=== PATIENT | male | born 1955 | race Caucasian/White ===

== ENCOUNTER 2016-08-03 20:34 | Inpatient (IN) | payer BC ==
[2016-08-03 21:14] LABS: Hematocrit 46 % (42-52); Hemoglobin 15.6 g/dl (14.0-18.0); Mean Corpuscular HGB Conc 34 g/dl (31-36); Mean Corpuscular Hemoglobin 30 pg (27-31); Mean Corpuscular Volume 88 fL (80-94); Mean Platelet Volume 7 um3 (7.4-10.4); Red Blood Count 5.28 10^6/ul (4.0-5.4); Red Cell Distribution Width 14 % (10.5-15); White Blood Count 8.2 10^3/ul (3.5-10.8)
[2016-08-03 21:29] LABS: ALT 29 U/L (7-52); AST 18 U/L (13-39); Albumin 4.9 g/dL (3.2-5.2); Alkaline Phosphatase 69 U/L (34-104); Anion Gap 5 mmol/L (2-11); BUN/Creatinine Ratio 14.9 (8-20); Blood Urea Nitrogen 18 mg/dL (6-24); CO2 Carbon Dioxide 32 mmol/L (22-32); Calcium 10.1 mg/dL (8.6-10.3); Chloride 103 mmol/L (101-111); EGFR African American 77.9 (>60); EGFR Non-African American 60.6 (>60); Globulin 2.7 g/dL (2-4); Glucose 114 mg/dL (70-100); Potassium 3.9 mmol/L (3.5-5.0); Sodium 140 mmol/L (133-145); Total Protein 7.6 g/dL (6.4-8.9)
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
--- NOTE | 2016-08-03 22:03 | RAD ---
INDICATION: Hypertension. MHE. COMPARISON: None. TECHNIQUE: Dual energy PA and routine lateral views of the chest were obtained. REPORT: Clear lungs and pleural spaces. Negative for pneumothorax. The heart, pulmonary vasculature, and mediastinal contours are unremarkable. Unremarkable osseous structures and soft tissue contours. IMPRESSION: No evidence for acute intrathoracic disease.
[2016-08-03 22:05] LABS: Acetaminophen < 15 mcg/mL; Alcohol < 10 mg/dL (<10); Salicylate < 2.50 mg/dL (<30)
[2016-08-03 22:05] LABS: Urine Bacteria Absent (Absent); Urine Bilirubin Negative (Negative); Urine Glucose Negative (Negative); Urine Nitrite Negative (Negative)
[2016-08-03 22:15] LABS: TSH (Thyroid Stimulating Horm) 1.47 mcIU/mL (0.34-5.60)
[2016-08-03 22:25] LABS: Benzodiazepine Urine Screen None Detected (None Detect)
[2016-08-04] MEDS ORDERED: Cetirizine* 10 MG TAB PO PRN (02:40)
[2016-08-04] MEDS: Zolpidem TAB* 10 MG PO SCH ×2 (03:05→17:00)
[2016-08-04] MEDS: Lisinopril TAB* 10 MG PO SCH ×2 (03:05→17:00)
[2016-08-04] MEDS: Citalopram TAB* 10 MG PO SCH (09:02)
[2016-08-04] MEDS: oxyCODONE/Acetamin 5/325 MG* TAB PO SCH ×4 (09:02→20:22)
[2016-08-04] MEDS: amLODIPine TAB* 5 MG PO SCH (09:03)
[2016-08-04] MEDS: Vitamin THERAPEUTIC TAB PO SCH (09:03)
[2016-08-04] MEDS: Atorvastatin* 20 MG TAB PO SCH (09:03)
[2016-08-04] MEDS: Potassium Chlor TAB* 20 MEQ TAB.ER PO SCH ×2 (09:03→20:21)
[2016-08-04] MEDS: Diltiazem CD CAP* 240 MG PO SCH (09:03)
[2016-08-04] MEDS: aMILoride TAB* 5 MG PO SCH ×3 (09:03→20:22)
[2016-08-04] MEDS: hydrALAZINE TAB* 10 MG PO SCH ×3 (09:03→20:22)
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
[2016-08-04] MEDS ORDERED: risperiDONE TAB* 1 MG PO SCH (21:00)
[2016-08-05] MEDS: Acetaminophen TAB* 325 MG PO PRN ×3 (01:10→15:29)
[2016-08-05] MEDS: amLODIPine TAB* 5 MG PO SCH (07:50)
[2016-08-05] MEDS: aMILoride TAB* 5 MG PO SCH ×3 (07:50→20:37)
[2016-08-05] MEDS: Citalopram TAB* 10 MG PO SCH (07:51)
[2016-08-05] MEDS: Diltiazem CD CAP* 240 MG PO SCH (07:51)
[2016-08-05] MEDS: Atorvastatin* 20 MG TAB PO SCH (07:51)
[2016-08-05] MEDS: hydrALAZINE TAB* 10 MG PO SCH ×3 (07:52→20:38)
[2016-08-05] MEDS: Vitamin THERAPEUTIC TAB PO SCH (07:52)
[2016-08-05] MEDS: oxyCODONE/Acetamin 5/325 MG* TAB PO SCH ×4 (07:52→20:38)
[2016-08-05] MEDS: Potassium Chlor TAB* 20 MEQ TAB.ER PO SCH ×2 (07:52→20:39)
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
[2016-08-05] MEDS ORDERED: ALPRAZolam TAB* 0.5 MG PO PRN (12:56)
[2016-08-05] MEDS: Lisinopril TAB* 10 MG PO SCH (18:01)
--- NOTE | 2016-08-05 20:09 | CONS ---
CONSULTATION NOTE: DATE OF CONSULT/DICTATION: 08/05/16 PRIMARY CARE PROVIDER: Lizeth Arenas MD. PRIMARY STATE APPELLATE CLERK: Dr. Robert. REQUESTING PROVIDER: Dr. Gamboa. CONSULTING PROVIDER: GURMEET Grayson. SUPERVISING PHYSICIAN: Danish Pierre MD. CHIEF COMPLAINT: Hypertension management. HISTORY OF PRESENT ILLNESS: This is a 61-year-old gentleman with a history of hypertension and chronic pain as well as obstructive sleep apnea, hyperlipidemia , chronic kidney disease, BPH, chronic tinnitus who is a current patient in the behavioral health unit. The hospitalist group was asked to consult for hypertension management. Of note, during the patient's hospital stay, his maximum blood pressure has been 191/95 mmHg, seems to be averaging somewhere around systolic pressures in the 160s. The most recent blood pressure was measured at 150/87 mmHg, pulse has been between 70 and 80 beats per minute. The patient reports that this is a longstanding medical issue and is under the care of Dr. Robert for blood pressure management. He is currently on 5 antihypertensives, which have been continued during his hospital stay. He monitors his blood pressure frequently at home and blood pressure readings tend to be between the 150 and 160 mmHg systolic. The patient states that there have been some recent changes to his antihypertensive regimen but he is unsure of what those changes are. The patient denies any chest pain but he did have an acute episode this morning where he stated that he felt as if he was "going to ." He is not currently symptomatic, denying chest pain, shortness of breath, or palpitations. The patient denies any cardiac history. He quit smoking in 1997 and has no known chronic lung disease. PAST MEDICAL HISTORY: 1. Hypertension. 2. Chronic back pain. 3. BPH. 4. Obstructive sleep apnea. HOME MEDICATIONS: 1. Lisinopril 40 mg p.o. daily. 2. Potassium chloride 20 mEq p.o. twice daily. 3. Amlodipine 5 mg p.o. daily. 4. Atorvastatin 20 mg p.o. daily. 5. Desloratadine 5 mg p.o. daily. 6. Diltiazem 240 mg p.o. daily. 7. Lexapro 15 mg p.o. daily. 8. Eszopiclone 3 mg p.o. at bedtime. 9. Hydralazine 10 mg p.o. t.i.d. 10. Amiloride 5 mg p.o. t.i.d. HOSPITAL MEDICATIONS: Reviewed and all home antihypertensive medications have been continued. SOCIAL HISTORY: The patient lives at home with his . He does have a smoking history but quit in 1997. REVIEW OF SYSTEMS: As noted above in HPI and is otherwise negative. PHYSICAL EXAM: GENERAL: This is a well-appearing middle-aged gentleman in no acute distress. Of note, the patient was extremely inappropriate during the exam process. VITAL SIGNS: Most recent vitals; temperature 98.5 degrees Fahrenheit, pulse 85 beats per minute, respiratory rate 16 per minute, oxygen saturation 97% on room air, and blood pressure 150/87 mmHg. HEENT: Head is normocephalic and atraumatic. RESPIRATORY: Lungs are clear to auscultation without wheezes, crackles, or rhonchi. CARDIOVASCULAR: Heart has a regular rate and rhythm without murmurs, rubs, or gallops. ABDOMEN: Soft and nontender to palpation. EXTREMITIES: There is no significant lower extremity edema. SKIN: Examination shows no concerning rashes or lesions. PSYCH: The patient is alert and appropriately oriented. Makes inappropriate gestures during the exam process. LABORATORY EVALUATION: Reviewed the labs from the time of admission, 08/03/16, at which point, CBC was within normal limits. White blood cell count of 8200, hemoglobin 15.6 g/dL, and platelet count of 178,000. Comprehensive metabolic panel showed a sodium of 140 mmol/L, potassium 3.9 mmol/L, BUN 18, creatinine 1.2, which seems to be somewhat near his baseline. Total bilirubin mildly elevated at 1.7. Again, this appears to be chronic for him and transaminases are unremarkable. Urinalysis is unremarkable. Toxicology screen is positive only for opiates, which are on his home medication list. IMAGING: Chest x-ray, 08/03/16, shows no acute process. EKG from admission shows sinus rhythm with inverted T-waves in lateral and inferior leads, which remains persistent on repeat. No old ones are available for comparison. ASSESSMENT AND PLAN: This is a 61-year-old gentleman. Currently, the patient is in the behavioral health unit with longstanding history of hypertension, for which hospitalist group was asked to please consult. 1. Hypertension. It seems that this is not of acute concern. The patient does have some vague complaints that could be considered symptomatic hypertension. Recommend repeating an EKG. Otherwise, recommend increased amlodipine 10 mg p.o. daily and continue the remainder of his antihypertensives at current doses. Target blood pressures should be systolic pressures between 140 and 150 mmHg. From discussion with the patient, it sounds like he has not been able to achieve better control than that as an outpatient. I would recommend low-salt diet during his hospital stay as well, which may help maintain better blood pressure management. 2. Benign prostatic hypertrophy. 3. Obstructive sleep apnea. 4. Code status - The patient is full code. DISPOSITION: Hospitalist group will continue to follow along with this patient. Please see medication recommendations as noted above. GURMEET GRAYSON CC: Dr. Morse * [id number]/[facility] #: [id number] GUILLERMINA
[2016-08-05] MEDS: risperiDONE TAB* 1 MG PO SCH (20:40)
[2016-08-05] MEDS ORDERED: Zolpidem TAB* 10 MG PO SCH (21:00)
[2016-08-05] MEDS: PTO: Eszopiclone (NF) 3 MG TAB PO SCH (21:39)
--- NOTE | 2016-08-06 06:32 | EEG ---
ELECTROENCEPHALOGRAPHY: DATE OF STUDY/DICTATION: 08/05/15 LOCATION: He is an inpatient, room 206. REFERRING PROVIDER: Dr. Gamboa. CLINICAL HISTORY: Delusions, rule out seizures. MEDICATIONS: Include: 1. Percocet. 2. Apresoline. 3. Midamor. EEG DESCRIPTION: This 16-channel EEG is remarkable for background activity, the onset of the tracing consisting of a well-formed alpha rhythm in the posterior derivations at 10 cycles per second, which is symmetric and suppressed by eye opening. Low voltage beta rhythms are seen bifrontally. The patient is awake. Activation procedures are not attempted. The patient does not appear to drowse or sleep during the recording. There are no focal, lateralized, or epileptiform abnormalities. INTERPRETATION: Normal awake EEG. [id number]/[facility] #: [id number] MTDD
[2016-08-06] MEDS: Diltiazem CD CAP* 240 MG PO SCH (08:14)
[2016-08-06] MEDS: Potassium Chlor TAB* 20 MEQ TAB.ER PO SCH ×2 (08:14→20:12)
[2016-08-06] MEDS: Vitamin THERAPEUTIC TAB PO SCH (08:14)
[2016-08-06] MEDS: hydrALAZINE TAB* 10 MG PO SCH ×3 (08:14→20:13)
[2016-08-06] MEDS: Citalopram TAB* 10 MG PO SCH (08:14)
[2016-08-06] MEDS: aMILoride TAB* 5 MG PO SCH ×3 (08:15→20:12)
[2016-08-06] MEDS: amLODIPine TAB* 5 MG PO SCH (08:15)
[2016-08-06] MEDS: oxyCODONE/Acetamin 5/325 MG* TAB PO SCH (08:15)
[2016-08-06] MEDS: Atorvastatin* 20 MG TAB PO SCH (08:15)
[2016-08-06] MEDS ORDERED: Loperamide CAP* 2 MG PO PRN (10:40)
[2016-08-06] MEDS ORDERED: Ibuprofen TAB* 800 MG PO PRN (10:40)
[2016-08-06] MEDS ORDERED: Ondansetron ODT TAB* 4 MG PO PRN (10:42)
--- NOTE | 2016-08-06 10:50 | PN ---
Subjective - Subjective Service Type: 47687 Hosp care 15 min low complexity Subjective: The patient appears much more behaviorally regulated today. He is less intrusive and has not, as yet, made any attempts to inappropriately touch any of his peers. "I feel better today. I slept better." I received a call from his , Sunshine Burns, also a licensed psychologist, who complained that the patient's percocet appears to worsen his psychosis and feels that this should be discontinued by the hospital in a detox protocol. I ask the patient about this and he is agreeable to a clonidine detox. She is set to arrive this PM for a family meeting. The patient refused his MRI last night but today appears willing to proceed. Objective - Appearance Appearance: Well Developed/Nourished Dysmorphic Features: No Hygiene: Normal Grooming: Fairly Well Kept - Behavior Psychomotor Activities: Normal Exhibits Abnormal Movement: No - Attitude and Relatedness Attitude and Relatedness: Cooperative Eye Contact: Fair - Speech Quality: Unpressured Latencies: Normal Quantity: Terse - Mood Patient's Decription of Mood: "Okay" - Affect Observed Affect: Constricted Affect Consistent with: Dysphoria - Thought Process Patient's Thought Process: Coherent Thought Content: Yes Paranoid Ideation, No Passive Wish, No Suicidal Planning, No Homicidal Ideation - Sensorium Experiencing Hallucinations: No, Sensorium is Clear Type of Hallucinations: Visual: No, Auditory: No, Command: No - Level of Consciousness Level of Consciousness: Alert Orientation: Yes Intact, Yes Orientated to Time, Yes Orientated to Place, Yes Orientated to Person - Impulse Control Impulse Control: Poor - Insight and Judgement Insight and Judgement: Impaired - Group Participation Particating in Group Activities: No - Medication Management Medication Management Adherence: Yes Assessment - Assessment Merits Inpatient Hospitalization: For Immediate Safety, For Stabilization Inpatient DSM-IV Dx: Unspecified Psychotic DO Clinical Impression: 61 y.o. 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 Plan - Plan Treatment Plan: Name: INES LUIS Birthdate: 1955 [id number] The patient appears improved today. EEG was within normal limits and we await MRI procedure. Family meeting with his today at 13:00. Will attempt to talk the patient into rescinding request for d/c. Patient tolerating low dose risperidone well. Await MMPI results. Continued Medication Management: Continue Outpt Medication Medications: Current Medications Acetaminophen (Tylenol Tab*) 650 mg PO Q4H PRN PRN Reason: PAIN or TEMP > 101 F Last Admin: 08/05/16 15:29 Dose: 650 mg Al Hydrox/Mg Hydrox/Simethicone (Maalox Plus*) 30 ml PO Q4H PRN PRN Reason: INDIGESTION Amiloride HCl (Midamor Tab*) 5 mg PO TID [facility] Last Admin: 08/06/16 08:15 Dose: 5 mg Amlodipine Besylate (Norvasc Tab*) 10 mg PO DAILY [facility] Last Admin: 08/06/16 08:15 Dose: 10 mg Atorvastatin Calcium (Lipitor*) 20 mg PO DAILY [facility] Last Admin: 08/06/16 08:15 Dose: 20 mg Cetirizine HCl (Zyrtec*) 10 mg PO DAILY PRN PRN Reason: UNSPECIFIED Citalopram Hydrobromide (Celexa Tab*) 30 mg PO DAILY [facility] Last Admin: 08/06/16 08:14 Dose: 30 mg Clonidine HCl (Qyijgujj-Vzl-8 0.1 Mg Patch*) 0.1 mg TRANSDERM Q7D [facility] Diltiazem HCl (Cardizem Cd Cap*) 240 mg PO DAILY [facility] Last Admin: 08/06/16 08:14 Dose: 240 mg Eszopiclone (Lunesta (Nf)) 6 mg PO BEDTIME [facility] Last Admin: 08/05/16 21:39 Dose: 6 mg Hydralazine HCl (Apresoline Tab*) 10 mg PO TID [facility] Last Admin: 08/06/16 08:14 Dose: 10 mg Ibuprofen (Motrin Tab*) 800 mg PO Q8H PRN PRN Reason: PAIN Lisinopril (Prinivil Tab*) 40 mg PO QPM [facility] Last Admin: 08/05/16 18:01 Dose: 40 mg Loperamide HCl (Imodium Cap*) 2 mg PO .SEE DIRECTIONS PRN PRN Reason: DIARRHEA Multivitamins (Theragran Tab*) 1 tab PO DAILY [facility] Last Admin: 08/06/16 08:14 Dose: 1 tab Ondansetron HCl (Zofran Odt Tab*) 4 mg PO Q6H PRN PRN Reason: NAUSEA Potassium Chloride (Klor Con Er Tab*) 20 meq PO BID [facility] Last Admin: 08/06/16 08:14 Dose: 20 meq Risperidone (Risperdal*) 1 mg PO BEDTIME [facility] Last Admin: 08/05/16 20:40 Dose: 1 mg - Discharge Plan Discharge Plan: Inpatient Hospitalization
[2016-08-06] MEDS: cloNIDine 0.1 MG PATCH* 0.1 MG/24 HR 7 DAY PATCH TRANSDERM SCH (12:02)
[2016-08-06] MEDS ORDERED: ALPRAZolam TAB* 0.5 MG PO PRN (12:07)
--- NOTE | 2016-08-06 12:52 | PN ---
MHU: Group Therapy Note - Service Type Service Type: [id number] Group Psychotherapy - Cognitive Behavioral Group Therapy ( CBT):Patient was attentive and participatory in CBT programming this morning, and remained in good behavioral control. Patient expressed positive insights regarding relevant treatment interventions and goals.
[2016-08-06] MEDS ORDERED: ALPRAZolam TAB* 0.5 MG PO SCH (13:00)
--- NOTE | 2016-08-06 17:07 | RAD ---
HISTORY: Psychosis, headaches, nausea, altered mental status COMPARISONS: None TECHNIQUE: The following sequences were obtained of the head: Sagittal T1-weighted images, axial T2-weighted images, axial FLAIR images, axial susceptibility weighted images, axial T1-weighted images. Additionally, axial diffusion-weighted images were obtained with calculated apparent diffusion coefficients. FINDINGS: The study is limited by patient motion artifact. HEMORRHAGE/INFARCT: There is no hemorrhage or acute infarct. MASSES/SHIFT: There is no mass or shift. EXTRA-AXIAL SPACES/MENINGES: There are no extra-axial fluid collections. SULCI AND VENTRICLES: The sulci and ventricles are normal in size and position for the patient's stated age. CEREBRUM: There are no focal parenchymal abnormalities. BRAINSTEM: There are no focal parenchymal abnormalities. CEREBELLUM: There are no focal parenchymal abnormalities. The cerebellar tonsils are normal in size and position. SELLA: The sella is normal. PINEAL: The pineal region is clear. CP ANGLE/TEMPORAL BONES: The labyrinthine structures are grossly normal. VESSELS: Normal flow-voids are noted within the visualized vertebral vasculature. DIFFUSION ABNORMALITIES: There are no diffusion abnormalities. PARANASAL SINUSES/MASTOIDS: There is mild mucosal thickening of ethmoid air cells. ORBITS: The orbits are unremarkable. BONES AND SOFT TISSUE: No bone or soft tissue abnormalities are noted. OTHER: None IMPRESSION: 1. LIMITED STUDY. 2. UNREMARKABLE MRI OF THE BRAIN
--- NOTE | 2016-08-06 17:39 | CONSULT ---
Subjective Date of Service: 08/06/16 Interval History: No complaints No chest pain, no SOB, LH, N/V Review of Systems - Measurements Intake and Output: Intake and Output Last 24 Hours 08/04/16 08/05/16 08/06/16 08/07/16 11:59 11:59 11:59 11:59 Weight 72.575 kg 72.575 kg Objective Active Medications: Acetaminophen (Tylenol Tab*) 650 mg PO Q4H PRN PRN Reason: PAIN or TEMP > 101 F Last Admin: 08/05/16 15:29 Dose: 650 mg Al Hydrox/Mg Hydrox/Simethicone (Maalox Plus*) 30 ml PO Q4H PRN PRN Reason: INDIGESTION Amiloride HCl (Midamor Tab*) 5 mg PO TID [facility] Last Admin: 08/06/16 14:08 Dose: 5 mg Amlodipine Besylate (Norvasc Tab*) 10 mg PO DAILY [facility] Last Admin: 08/06/16 08:15 Dose: 10 mg Atorvastatin Calcium (Lipitor*) 20 mg PO DAILY [facility] Last Admin: 08/06/16 08:15 Dose: 20 mg Cetirizine HCl (Zyrtec*) 10 mg PO DAILY PRN PRN Reason: UNSPECIFIED Clonidine HCl (Hoxmheld-Vad-2 0.1 Mg Patch*) 0.1 mg TRANSDERM Q7D [facility] Last Admin: 08/06/16 12:02 Dose: 0.1 mg Diltiazem HCl (Cardizem Cd Cap*) 240 mg PO DAILY [facility] Last Admin: 08/06/16 08:14 Dose: 240 mg Eszopiclone (Lunesta (Nf)) 6 mg PO BEDTIME [facility] Last Admin: 08/05/16 21:39 Dose: 6 mg Hydralazine HCl (Apresoline Tab*) 20 mg PO TID [facility] Lisinopril (Prinivil Tab*) 40 mg PO QPM [facility] Last Admin: 08/05/16 18:01 Dose: 40 mg Loperamide HCl (Imodium Cap*) 2 mg PO .SEE DIRECTIONS PRN PRN Reason: DIARRHEA Multivitamins (Theragran Tab*) 1 tab PO DAILY [facility] Last Admin: 08/06/16 08:14 Dose: 1 tab Ondansetron HCl (Zofran Odt Tab*) 4 mg PO Q6H PRN PRN Reason: NAUSEA Potassium Chloride (Klor Con Er Tab*) 20 meq PO BID [facility] Last Admin: 08/06/16 08:14 Dose: 20 meq Risperidone (Risperdal*) 1 mg PO BEDTIME [facility] Last Admin: 08/05/16 20:40 Dose: 1 mg Vital Signs 08/05/16 08/05/16 08/05/16 19:14 20:38 22:15 Temperature Pulse Rate Respiratory 14 16 16 Rate Blood Pressure (mmHg) O2 Sat by Pulse Oximetry 08/06/16 08/06/16 08/06/16 07:31 08:15 10:15 Temperature 99.0 F Pulse Rate 96 Respiratory 16 16 16 Rate Blood Pressure 175/91 (mmHg) O2 Sat by Pulse 97 Oximetry 08/06/16 08/06/16 12:39 16:04 Temperature Pulse Rate Respiratory 16 16 Rate Blood Pressure (mmHg) O2 Sat by Pulse Oximetry Oxygen Devices in Use Now: None Appearance: NAD Eyes: No Scleral Icterus, PERRLA Ears/Nose/Mouth/Throat: NL Teeth, Lips, Gums, Clear Oropharnyx, Mucous Membranes Moist Neck: NL Appearance and Movements; NL JVP, Trachea Midline Respiratory: Symmetrical Chest Expansion and Respiratory Effort, Clear to Auscultation Cardiovascular: RRR, - - soft 2/6 early peaking VENKATA Extremities: No Edema Skin: No Rash or Ulcers Neurological: Alert and Oriented x 3 Result Diagrams: 08/03/16 21:05 08/03/16 21:05 Additional Lab and Data: Lab Results 08/03/16 08/03/16 Range/Units 21:05 21:05 WBC 8.2 (3.5-10.8) 10^3/ul RBC 5.28 (4.0-5.4) 10^6/ul Hgb 15.6 (14.0-18.0) g/dl Hct 46 (42-52) % MCV 88 (80-94) fL MCH 30 (27-31) pg MCHC 34 (31-36) g/dl RDW 14 (10.5-15) % Plt Count 178 (150-450) 10^3/ul MPV 7 L (7.4-10.4) um3 Neut % (Auto) 83.2 H (38-83) % Lymph % (Auto) 10.2 L (25-47) % Taney % (Auto) 5.3 (1-9) % Eos % (Auto) 0.3 (0-6) % Baso % (Auto) 1.0 (0-2) % Absolute Neuts (auto) 6.8 (1.5-7.7) 10^3/ul Absolute Lymphs (auto) 0.8 L (1.0-4.8) 10^3/ul Absolute Monos (auto) 0.4 (0-0.8) 10^3/ul Absolute Eos (auto) 0 (0-0.6) 10^3/ul Absolute Basos (auto) 0.1 (0-0.2) 10^3/ul Absolute Nucleated RBC 0 10^3/ul Nucleated RBC % 0 Sodium 140 (133-145) mmol/L Potassium 3.9 (3.5-5.0) mmol/L Chloride 103 (101-111) mmol/L Carbon Dioxide 32 (22-32) mmol/L Anion Gap 5 (2-11) mmol/L BUN 18 (6-24) mg/dL Creatinine 1.21 H (0.67-1.17) mg/dL Est GFR ( Amer) 77.9 (>60) Est GFR (Non-Af Amer) 60.6 (>60) BUN/Creatinine Ratio 14.9 (8-20) Glucose 114 H (70-100) mg/dL Calcium 10.1 (8.6-10.3) mg/dL Total Bilirubin 1.70 H (0.2-1.0) mg/dL AST 18 (13-39) U/L ALT 29 (7-52) U/L Alkaline Phosphatase 69 (34-104) U/L Total Protein 7.6 (6.4-8.9) g/dL Albumin 4.9 (3.2-5.2) g/dL Globulin 2.7 (2-4) g/dL Albumin/Globulin Ratio 1.8 (1-3) TSH Pending Salicylates Pending Acetaminophen Pending Serum Alcohol Pending Assessment/Plan - Billing 61 yo M with resistant HTN Resistant HTN -c/w amlodipine at increased 10mg dose -c/w amlioride, lisinopril, clonidine, diltiazem -increase hydralazine from 10mg TID to 20mg TID -has had renal artery US -would benefit from TTE as outpatient if not already performed BPH- untreated SHELL- treatment would benefit HTN Will continue to follow
[2016-08-06] MEDS: Lisinopril TAB* 10 MG PO SCH (17:50)
[2016-08-06] MEDS: risperiDONE TAB* 1 MG PO SCH (20:13)
[2016-08-06] MEDS: PTO: Eszopiclone (NF) 3 MG TAB PO SCH (20:17)
[2016-08-07] MEDS ORDERED: Benztropine TAB* 1 MG PO ONE (01:00)
[2016-08-07] MEDS: hydrALAZINE TAB* 10 MG PO SCH ×3 (08:30→20:31)
[2016-08-07] MEDS: Atorvastatin* 20 MG TAB PO SCH (08:32)
[2016-08-07] MEDS: amLODIPine TAB* 5 MG PO SCH (08:33)
[2016-08-07] MEDS: Diltiazem CD CAP* 240 MG PO SCH (08:35)
[2016-08-07] MEDS: aMILoride TAB* 5 MG PO SCH ×3 (08:35→20:31)
[2016-08-07] MEDS: Potassium Chlor TAB* 20 MEQ TAB.ER PO SCH ×2 (08:36→20:31)
[2016-08-07] MEDS: Vitamin THERAPEUTIC TAB PO SCH (08:36)
--- NOTE | 2016-08-07 14:14 | PN ---
Subjective - Subjective Service Type: 10093 Hosp care 35 min high complexity Subjective: The patient continues to display moments of grandiosity and lacunar boundaries on our unit. This morning he greatly upset his roommate by walking into their shared bathroom without his clothes on and using the toilet as the roommate showered. He later made a statement to the staff to the effect that he would like to come back and volunteer on the unit after discharge, seeming to suggest to the staff member he was talking to that he had unique empathic skills that would help heal inpatient consumers. The patient received a dose of benztropine last night for insomnia and states that, at the time, he couldn't sleep due to sweating and diarrhea, presumably connected with opioid withdrawal following discontinuation of percocet. Hospitalist service continues to adjust his antihypertensives due to continued elevated BP readings. In light of these changes to his outpatient meds I called his PCP, Dr. Lizeth Arenas, at [facility]. She expresses awareness of the events leading to admission, in fact she was the one who encouraged he and his to come to the ER for evaluation this weekend, and is in full support of the treatment plan up until this time. She adds that since he started escitalopram therapy around 05/15 she has noted that he has been slightly more grandiose and she agrees with our decision to have discontinued this. On exam, Guererro is calm and cooperative. No overt psychotic behavior is noted during our conversation. Objective - Appearance Appearance: Well Developed/Nourished, Healthy Appearing Dysmorphic Features: No Hygiene: Normal Grooming: Well Kept - Behavior Psychomotor Activities: Normal Exhibits Abnormal Movement: No - Attitude and Relatedness Attitude and Relatedness: Cooperative Eye Contact: Fair - Speech Quality: Unpressured Latencies: Normal Quantity: Appropriate - Mood Patient's Decription of Mood: "Okay" - Affect Observed Affect: Fair Affect Consistent with: Euthymia - Thought Process Patient's Thought Process: Coherent Thought Content: No Passive Wish, No Suicidal Planning, No Homicidal Ideation, No Paranoid Ideation - Sensorium Experiencing Hallucinations: No, Sensorium is Clear Type of Hallucinations: Visual: No, Auditory: No, Command: No - Level of Consciousness Level of Consciousness: Alert Orientation: Yes Intact, Yes Orientated to Time, Yes Orientated to Place, Yes Orientated to Person - Impulse Control Impulse Control: Tenuous - Insight and Judgement Insight and Judgement: Fair - Group Participation Particating in Group Activities: Yes - Medication Management Medication Management Adherence: Yes Assessment - Assessment Merits Inpatient Hospitalization: For Immediate Safety, For Stabilization Inpatient DSM-IV Dx: Unspecified Psychotic DO Clinical Impression: 61 y.o. 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 Plan - Plan Treatment Plan: Name: GUERRERO LUIS Birthdate: 1955 [id number] The patient is tolerating his detoxification from opioids and escitalopram well. For insomnia we will add Benadryl 50mg PO qhs prn. His MRI was limited by patient movement in the device, but appears to be within normal limits. EEG was negative. Appreciate hospitalist input for HTN management. Patient tolerating low dose risperidone well. Await MMPI results. Continued Medication Management: Different Medication Medications: Current Medications Acetaminophen (Tylenol Tab*) 650 mg PO Q4H PRN PRN Reason: PAIN or TEMP > 101 F Last Admin: 08/05/16 15:29 Dose: 650 mg Al Hydrox/Mg Hydrox/Simethicone (Maalox Plus*) 30 ml PO Q4H PRN PRN Reason: INDIGESTION Amiloride HCl (Midamor Tab*) 5 mg PO TID [facility] Last Admin: 08/07/16 08:35 Dose: 5 mg Amlodipine Besylate (Norvasc Tab*) 10 mg PO DAILY [facility] Last Admin: 08/07/16 08:33 Dose: 10 mg Atorvastatin Calcium (Lipitor*) 20 mg PO DAILY [facility] Last Admin: 08/07/16 08:32 Dose: 20 mg Cetirizine HCl (Zyrtec*) 10 mg PO DAILY PRN PRN Reason: UNSPECIFIED Clonidine HCl (Ahmhvzrh-Okn-2 0.1 Mg Patch*) 0.1 mg TRANSDERM Q7D [facility] Last Admin: 08/06/16 12:02 Dose: 0.1 mg Diltiazem HCl (Cardizem Cd Cap*) 240 mg PO DAILY [facility] Last Admin: 08/07/16 08:35 Dose: 240 mg Diphenhydramine HCl (Benadryl Po*) 50 mg PO BEDTIME PRN PRN Reason: AGITATION/ANXIETY/INSOMNIA Eszopiclone (Lunesta (Nf)) 6 mg PO BEDTIME [facility] Last Admin: 08/06/16 20:17 Dose: 6 mg Hydralazine HCl (Apresoline Tab*) 20 mg PO TID [facility] Last Admin: 08/07/16 08:30 Dose: 20 mg Lisinopril (Prinivil Tab*) 40 mg PO QPM [facility] Last Admin: 08/06/16 17:50 Dose: 40 mg Loperamide HCl (Imodium Cap*) 2 mg PO .SEE DIRECTIONS PRN PRN Reason: DIARRHEA Last Admin: 08/06/16 20:08 Dose: 2 mg Multivitamins (Theragran Tab*) 1 tab PO DAILY [facility] Last Admin: 08/07/16 08:36 Dose: 1 tab Ondansetron HCl (Zofran Odt Tab*) 4 mg PO Q6H PRN PRN Reason: NAUSEA Potassium Chloride (Klor Con Er Tab*) 20 meq PO BID [facility] Last Admin: 08/07/16 08:36 Dose: 20 meq Risperidone (Risperdal*) 1 mg PO BEDTIME [facility] Last Admin: 08/06/16 20:13 Dose: 1 mg - Discharge Plan Discharge Plan: Inpatient Hospitalization
[2016-08-07] MEDS: Lisinopril TAB* 10 MG PO SCH (17:41)
[2016-08-07] MEDS: PTO: Eszopiclone (NF) 3 MG TAB PO SCH (20:30)
[2016-08-07] MEDS: risperiDONE TAB* 1 MG PO SCH (20:31)
[2016-08-07] MEDS ORDERED: LORazepam TAB(*) 0.5 MG ONE (22:14)
[2016-08-07] MEDS ORDERED: LORazepam TAB(*) 0.5 MG PO ONE (23:00)
[2016-08-08] MEDS: Vitamin THERAPEUTIC TAB PO SCH (09:03)
[2016-08-08] MEDS: amLODIPine TAB* 5 MG PO SCH (09:03)
[2016-08-08] MEDS: Potassium Chlor TAB* 20 MEQ TAB.ER PO SCH ×2 (09:03→20:48)
[2016-08-08] MEDS: Atorvastatin* 20 MG TAB PO SCH (09:03)
[2016-08-08] MEDS: hydrALAZINE TAB* 10 MG PO SCH ×3 (09:41→20:48)
[2016-08-08] MEDS: aMILoride TAB* 5 MG PO SCH ×3 (09:41→20:48)
[2016-08-08] MEDS: Diltiazem CD CAP* 240 MG PO SCH (10:02)
--- NOTE | 2016-08-08 11:07 | PN ---
Subjective - Subjective Service Type: 48555 Hosp care 25 min moderate complexity Subjective: Guerrero continues to show evidence of grandiose and intrusive behavior on the unit, as evidenced by the following behaviors. He has taken to treating peers in the milieu setting as though they are patients, counseling them and showing them techniques such as meditation and deep breathing. He has attempted to get his to bring in coffee, which he does not drink, in order to give it to peers. He asked a nurse the current stock galvan of a company he owns holdings of, with the express purpose of selling it and giving the proceeds to peers here on the unit. "They need it more than I do" he rationalizes. I spoke with his , Sunshine, who indicates that he continues to talk bizarrely about his near- experience, particularly when she visits in the evenings. She reports that their son, who has experienced several hospitalizations for psychotic illness, is doing well on quetiapine. On exam, the patient mostly minimizes symptoms. There is an element of grandiosity in his presentation in that he makes self-reports such as "This is the best I've ever been" and "You might have a hard time getting rid of me." The patient reportedly refused to complete his MMPI. Objective - Appearance Appearance: Well Developed/Nourished Dysmorphic Features: No Hygiene: Normal Grooming: Well Kept - Behavior Psychomotor Activities: Normal Exhibits Abnormal Movement: No - Attitude and Relatedness Attitude and Relatedness: Psychotically Related Eye Contact: Fair - Speech Quality: Unpressured Latencies: Normal Quantity: Appropriate - Mood Patient's Decription of Mood: "Great" - Affect Observed Affect: Euphoric Affect Consistent with: Euphoria - Thought Process Patient's Thought Process: Tangential Thought Content: Yes Paranoid Ideation, No Passive Wish, No Suicidal Planning, No Homicidal Ideation - Sensorium Experiencing Hallucinations: Yes Type of Hallucinations: Visual: Yes, Auditory: No, Command: No - Level of Consciousness Level of Consciousness: Alert Orientation: Yes Intact, Yes Orientated to Time, Yes Orientated to Place, Yes Orientated to Person - Impulse Control Impulse Control: Poor - Insight and Judgement Insight and Judgement: Impaired - Group Participation Particating in Group Activities: Yes - Medication Management Medication Management Adherence: Yes Assessment - Assessment Merits Inpatient Hospitalization: For Immediate Safety, For Stabilization Inpatient DSM-IV Dx: Unspecified Psychotic DO Clinical Impression: 61 y.o. 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 Plan - Plan Treatment Plan: Name: GUERRERO LUIS Birthdate: 1955 [id number] The patient is tolerating his detoxification from opioids and escitalopram well. He remains intrusive with poor insight and grandiosity. Since his son has done so well on quetiapine and because the patient himself continues to struggle with insomnia, we will discontinue risperidone and start a trial of quetiapine at 200mg PO qhs. We need to figure out quickly what psychiatrist will take over his treatment in the community so that collaboration can start before discharge. The patient's MRI and EEG were both within normal limits. The patient refused participation in the MMPI. Appreciate hospitalist input for HTN management. Will target August 12, for d/c. Medications: Current Medications Acetaminophen (Tylenol Tab*) 650 mg PO Q4H PRN PRN Reason: PAIN or TEMP > 101 F Last Admin: 08/05/16 15:29 Dose: 650 mg Al Hydrox/Mg Hydrox/Simethicone (Maalox Plus*) 30 ml PO Q4H PRN PRN Reason: INDIGESTION Amiloride HCl (Midamor Tab*) 5 mg PO TID [facility] Last Admin: 08/08/16 09:41 Dose: 5 mg Amlodipine Besylate (Norvasc Tab*) 10 mg PO DAILY [facility] Last Admin: 08/08/16 09:03 Dose: 10 mg Atorvastatin Calcium (Lipitor*) 20 mg PO DAILY [facility] Last Admin: 08/08/16 09:03 Dose: 20 mg Cetirizine HCl (Zyrtec*) 10 mg PO DAILY PRN PRN Reason: UNSPECIFIED Clonidine HCl (Fimmyzhp-Etb-0 0.1 Mg Patch*) 0.1 mg TRANSDERM Q7D [facility] Last Admin: 08/06/16 12:02 Dose: 0.1 mg Diltiazem HCl (Cardizem Cd Cap*) 240 mg PO DAILY [facility] Last Admin: 08/08/16 10:02 Dose: 240 mg Diphenhydramine HCl (Benadryl Po*) 50 mg PO BEDTIME PRN PRN Reason: AGITATION/ANXIETY/INSOMNIA Eszopiclone (Lunesta (Nf)) 6 mg PO BEDTIME [facility] Last Admin: 08/07/16 20:30 Dose: 6 mg Hydralazine HCl (Apresoline Tab*) 20 mg PO TID [facility] Last Admin: 08/08/16 09:41 Dose: 20 mg Lisinopril (Prinivil Tab*) 40 mg PO QPM [facility] Last Admin: 08/07/16 17:41 Dose: 40 mg Loperamide HCl (Imodium Cap*) 2 mg PO .SEE DIRECTIONS PRN PRN Reason: DIARRHEA Last Admin: 08/06/16 20:08 Dose: 2 mg Multivitamins (Theragran Tab*) 1 tab PO DAILY [facility] Last Admin: 08/08/16 09:03 Dose: 1 tab Ondansetron HCl (Zofran Odt Tab*) 4 mg PO Q6H PRN PRN Reason: NAUSEA Potassium Chloride (Klor Con Er Tab*) 20 meq PO BID [facility] Last Admin: 08/08/16 09:03 Dose: 20 meq Quetiapine Fumarate (Seroquel Tab*) 200 mg PO BEDTIME [facility]
[2016-08-08] MEDS: Lisinopril TAB* 10 MG PO SCH (17:37)
--- NOTE | 2016-08-08 18:58 | CONSULT ---
Subjective Date of Service: 08/08/16 Interval History: Seen and examined Has no complaints since changing medications Has no notable side effects no LH when walking Review of Systems - Measurements Intake and Output: Intake and Output Last 24 Hours 08/06/16 08/07/16 08/08/16 08/09/16 11:59 11:59 11:59 11:59 Weight 72.575 kg Objective Active Medications: Acetaminophen (Tylenol Tab*) 650 mg PO Q4H PRN PRN Reason: PAIN or TEMP > 101 F Last Admin: 08/05/16 15:29 Dose: 650 mg Al Hydrox/Mg Hydrox/Simethicone (Maalox Plus*) 30 ml PO Q4H PRN PRN Reason: INDIGESTION Amiloride HCl (Midamor Tab*) 5 mg PO TID [facility] Last Admin: 08/08/16 13:48 Dose: 5 mg Amlodipine Besylate (Norvasc Tab*) 10 mg PO DAILY [facility] Last Admin: 08/08/16 09:03 Dose: 10 mg Atorvastatin Calcium (Lipitor*) 20 mg PO DAILY [facility] Last Admin: 08/08/16 09:03 Dose: 20 mg Cetirizine HCl (Zyrtec*) 10 mg PO DAILY PRN PRN Reason: UNSPECIFIED Clonidine HCl (Kijahevl-Tdu-0 0.1 Mg Patch*) 0.1 mg TRANSDERM Q7D [facility] Last Admin: 08/06/16 12:02 Dose: 0.1 mg Diltiazem HCl (Cardizem Cd Cap*) 240 mg PO DAILY [facility] Last Admin: 08/08/16 10:02 Dose: 240 mg Diphenhydramine HCl (Benadryl Po*) 50 mg PO BEDTIME PRN PRN Reason: AGITATION/ANXIETY/INSOMNIA Eszopiclone (Lunesta (Nf)) 6 mg PO BEDTIME [facility] Last Admin: 08/07/16 20:30 Dose: 6 mg Hydralazine HCl (Apresoline Tab*) 20 mg PO TID [facility] Last Admin: 08/08/16 13:49 Dose: 20 mg Lisinopril (Prinivil Tab*) 40 mg PO QPM [facility] Last Admin: 08/08/16 17:37 Dose: 40 mg Loperamide HCl (Imodium Cap*) 2 mg PO .SEE DIRECTIONS PRN PRN Reason: DIARRHEA Last Admin: 08/06/16 20:08 Dose: 2 mg Multivitamins (Theragran Tab*) 1 tab PO DAILY [facility] Last Admin: 08/08/16 09:03 Dose: 1 tab Ondansetron HCl (Zofran Odt Tab*) 4 mg PO Q6H PRN PRN Reason: NAUSEA Potassium Chloride (Klor Con Er Tab*) 20 meq PO BID [facility] Last Admin: 08/08/16 09:03 Dose: 20 meq Quetiapine Fumarate (Seroquel Tab*) 200 mg PO BEDTIME [facility] Vital Signs 08/07/16 08/08/16 08/08/16 22:18 00:18 07:36 Temperature 98.0 F Pulse Rate 72 Respiratory 16 15 16 Rate Blood Pressure 131/81 (mmHg) O2 Sat by Pulse 99 Oximetry 08/08/16 12:30 Temperature Pulse Rate Respiratory 16 Rate Blood Pressure (mmHg) O2 Sat by Pulse Oximetry Oxygen Devices in Use Now: None Appearance: NAD, ambulates around unit Eyes: No Scleral Icterus, PERRLA Ears/Nose/Mouth/Throat: Mucous Membranes Moist Neck: NL Appearance and Movements; NL JVP Respiratory: Symmetrical Chest Expansion and Respiratory Effort, Clear to Auscultation Cardiovascular: RRR Extremities: No Edema Neurological: Alert and Oriented x 3 Result Diagrams: 08/03/16 21:05 08/03/16 21:05 Additional Lab and Data: Lab Results 08/03/16 08/03/16 Range/Units 21:05 21:05 WBC 8.2 (3.5-10.8) 10^3/ul RBC 5.28 (4.0-5.4) 10^6/ul Hgb 15.6 (14.0-18.0) g/dl Hct 46 (42-52) % MCV 88 (80-94) fL MCH 30 (27-31) pg MCHC 34 (31-36) g/dl RDW 14 (10.5-15) % Plt Count 178 (150-450) 10^3/ul MPV 7 L (7.4-10.4) um3 Neut % (Auto) 83.2 H (38-83) % Lymph % (Auto) 10.2 L (25-47) % Howard % (Auto) 5.3 (1-9) % Eos % (Auto) 0.3 (0-6) % Baso % (Auto) 1.0 (0-2) % Absolute Neuts (auto) 6.8 (1.5-7.7) 10^3/ul Absolute Lymphs (auto) 0.8 L (1.0-4.8) 10^3/ul Absolute Monos (auto) 0.4 (0-0.8) 10^3/ul Absolute Eos (auto) 0 (0-0.6) 10^3/ul Absolute Basos (auto) 0.1 (0-0.2) 10^3/ul Absolute Nucleated RBC 0 10^3/ul Nucleated RBC % 0 Sodium 140 (133-145) mmol/L Potassium 3.9 (3.5-5.0) mmol/L Chloride 103 (101-111) mmol/L Carbon Dioxide 32 (22-32) mmol/L Anion Gap 5 (2-11) mmol/L BUN 18 (6-24) mg/dL Creatinine 1.21 H (0.67-1.17) mg/dL Est GFR ( Amer) 77.9 (>60) Est GFR (Non-Af Amer) 60.6 (>60) BUN/Creatinine Ratio 14.9 (8-20) Glucose 114 H (70-100) mg/dL Calcium 10.1 (8.6-10.3) mg/dL Total Bilirubin 1.70 H (0.2-1.0) mg/dL AST 18 (13-39) U/L ALT 29 (7-52) U/L Alkaline Phosphatase 69 (34-104) U/L Total Protein 7.6 (6.4-8.9) g/dL Albumin 4.9 (3.2-5.2) g/dL Globulin 2.7 (2-4) g/dL Albumin/Globulin Ratio 1.8 (1-3) TSH Pending Salicylates Pending Acetaminophen Pending Serum Alcohol Pending Assessment/Plan - Billing 61 yo M with resistant HTN Resistant HTN -c/w amlodipine at increased 10mg dose -c/w amlioride, lisinopril, clonidine, diltiazem -c/w increased hydralazine dose at 20mg TID - can potentially increase to 30mg if needed. He is no where near max daily dose -has had renal artery US -would benefit from TTE as outpatient if not already performed BPH- untreated SHELL- treatment would benefit HTN Will sign off for now Please call with additional questions [phone]
[2016-08-08] MEDS: PTO: Eszopiclone (NF) 3 MG TAB PO SCH (20:48)
[2016-08-08] MEDS ORDERED: QUEtiapine TAB* 100 MG PO SCH (21:00)
[2016-08-08] MEDS: diPHENhydraMINE PO* 50 MG PO PRN (23:30)
[2016-08-09] MEDS: Vitamin THERAPEUTIC TAB PO SCH (08:53)
[2016-08-09] MEDS: Potassium Chlor TAB* 20 MEQ TAB.ER PO SCH ×2 (08:53→22:19)
[2016-08-09] MEDS: Diltiazem CD CAP* 240 MG PO SCH (08:53)
[2016-08-09] MEDS: amLODIPine TAB* 5 MG PO SCH (08:54)
[2016-08-09] MEDS: hydrALAZINE TAB* 10 MG PO SCH ×3 (08:54→22:18)
[2016-08-09] MEDS: Atorvastatin* 20 MG TAB PO SCH (08:55)
[2016-08-09] MEDS: aMILoride TAB* 5 MG PO SCH ×3 (08:55→22:19)
[2016-08-09] MEDS ORDERED: Benztropine TAB* 1 MG PO PRN (11:37)
--- NOTE | 2016-08-09 11:50 | PN ---
MHU: Group Therapy Note - Service Type Service Type: [id number] Group Psychotherapy - Cognitive Behavioral Group Therapy ( CBT):Patient was attentive and participatory in CBT programming this morning, and remained in good behavioral control. Patient expressed positive insights regarding relevant treatment interventions and goals.
--- NOTE | 2016-08-09 12:00 | PN ---
Subjective - Subjective Service Type: 42226 Hosp care 25 min moderate complexity Subjective: The patient continues to show some boundary deficits on our unit as evidenced by behaviors such as teaching breathing and relaxation techniques to peers, giving out his phone number, attempting to have his bring coffee for peers , as well as troubling statements to the effect that he wants to give them money and volunteer here on the unit in the future. He only slept 2.5 hours last night and did complain of an uncomfortable sensation of "crawling out of my skin" after taking his meds at bedtime. This clinician did have some contact with various sources regarding the hospital's reporting responsibilities in the case of a psychologist who might be psychiatrically impaired. Without divulging the patient's protected health information, I contacted the [facility] Office of Professions, which is the regulating agency of the State responsible for supervising psychology licensees. I spoke with a Mr. Abner BryanGracie ([phone]), an traffic investigator for OP, who informed me that there is no statutory obligation for health providers to originate a complaint against an impaired clinician, and this advisement was shared by paint dipper Rafa Iyer, who functions as the Hospital's Retreader. Both sources informed me that, in the event that a crime has occurred, such as violating an order of no-contact, the burden lies on the County where the crime was prosecuted to contact [facility] to initiate an investigation. Both the patient and his are expressing to me that they understand the ethical dimensions of his recent behavior towards a former patient and they are eager to see his psychiatric issues in complete remission prior to seeing patients again in the community. Objective - Appearance Appearance: Well Developed/Nourished Dysmorphic Features: No Hygiene: Normal Grooming: Well Kept - Behavior Psychomotor Activities: Normal Exhibits Abnormal Movement: No - Attitude and Relatedness Attitude and Relatedness: Psychotically Related Eye Contact: Fair - Speech Quality: Unpressured Latencies: Normal Quantity: Appropriate - Mood Patient's Decription of Mood: "Great" - Affect Observed Affect: Expansive Affect Consistent with: Euphoria - Thought Process Patient's Thought Process: Coherent Thought Content: Yes Paranoid Ideation, No Passive Wish, No Suicidal Planning, No Homicidal Ideation - Sensorium Experiencing Hallucinations: No, Sensorium is Clear Type of Hallucinations: Visual: No, Auditory: No, Command: No - Level of Consciousness Level of Consciousness: Alert Orientation: Yes Intact, Yes Orientated to Time, Yes Orientated to Place, Yes Orientated to Person - Impulse Control Impulse Control: Poor - Insight and Judgement Insight and Judgement: Impaired - Group Participation Particating in Group Activities: Yes - Medication Management Medication Management Adherence: Yes Assessment - Assessment Merits Inpatient Hospitalization: For Immediate Safety, For Stabilization Inpatient DSM-IV Dx: Unspecified Psychotic DO Clinical Impression: 61 y.o. 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 Plan - Plan Treatment Plan: Name: INES LUIS Birthdate: 1955 [id number] The patient remains intrusive with poor insight and grandiosity. His experiences of restlessness in the evenings after HS meds are concerning for akathisia. We will increase quetiapine to 300mg PO qhs but also add Cogentin and Restoril as prns in the event that he has a similar experience tonight. His discharge is targeted for Friday (08/12) but this could very well change if his boundaries don't solidify considerably. The patient's MRI and EEG were both within normal limits. The patient refused participation in the MMPI. Appreciate hospitalist input for HTN management. Continued Medication Management: Start Medication Medications: Current Medications Acetaminophen (Tylenol Tab*) 650 mg PO Q4H PRN PRN Reason: PAIN or TEMP > 101 F Last Admin: 08/05/16 15:29 Dose: 650 mg Al Hydrox/Mg Hydrox/Simethicone (Maalox Plus*) 30 ml PO Q4H PRN PRN Reason: INDIGESTION Amiloride HCl (Midamor Tab*) 5 mg PO TID [facility] Last Admin: 08/09/16 08:55 Dose: 5 mg Amlodipine Besylate (Norvasc Tab*) 10 mg PO DAILY [facility] Last Admin: 08/09/16 08:54 Dose: 10 mg Atorvastatin Calcium (Lipitor*) 20 mg PO DAILY [facility] Last Admin: 08/09/16 08:55 Dose: 20 mg Benztropine Mesylate (Cogentin Tab*) 1 mg PO Q8H PRN PRN Reason: EXTRAPYRAMIDAL SYMPTOMS Cetirizine HCl (Zyrtec*) 10 mg PO DAILY PRN PRN Reason: UNSPECIFIED Clonidine HCl (Yaxaihhp-Dkp-8 0.1 Mg Patch*) 0.1 mg TRANSDERM Q7D [facility] Last Admin: 08/06/16 12:02 Dose: 0.1 mg Diltiazem HCl (Cardizem Cd Cap*) 240 mg PO DAILY [facility] Last Admin: 08/09/16 08:53 Dose: 240 mg Diphenhydramine HCl (Benadryl Po*) 50 mg PO BEDTIME PRN PRN Reason: AGITATION/ANXIETY/INSOMNIA Last Admin: 08/08/16 23:30 Dose: 50 mg Eszopiclone (Lunesta (Nf)) 6 mg PO BEDTIME [facility] Last Admin: 08/08/16 20:48 Dose: 6 mg Hydralazine HCl (Apresoline Tab*) 20 mg PO TID [facility] Last Admin: 08/09/16 08:54 Dose: 20 mg Lisinopril (Prinivil Tab*) 40 mg PO QPM [facility] Last Admin: 08/08/16 17:37 Dose: 40 mg Loperamide HCl (Imodium Cap*) 2 mg PO .SEE DIRECTIONS PRN PRN Reason: DIARRHEA Last Admin: 08/06/16 20:08 Dose: 2 mg Multivitamins (Theragran Tab*) 1 tab PO DAILY [facility] Last Admin: 08/09/16 08:53 Dose: 1 tab Ondansetron HCl (Zofran Odt Tab*) 4 mg PO Q6H PRN PRN Reason: NAUSEA Potassium Chloride (Klor Con Er Tab*) 20 meq PO BID [facility] Last Admin: 08/09/16 08:53 Dose: 20 meq Quetiapine Fumarate (Seroquel Tab*) 300 mg PO BEDTIME [facility] Temazepam (Restoril Cap*) 15 mg PO BEDTIME PRN PRN Reason: INSOMNIA - Discharge Plan Discharge Plan: Inpatient Hospitalization
[2016-08-09] MEDS: Benzocaine/Menthol LOZ* 1 LOZENGE PO PRN ×3 (16:32→19:27)
[2016-08-09] MEDS: Lisinopril TAB* 10 MG PO SCH (18:15)
[2016-08-09] MEDS: Temazepam CAP* 15 MG PO PRN (22:22)
[2016-08-09] MEDS: Al Hydrox/Mg Hydrox/Simet LIQ* 30 ML UDC PO PRN (22:24)
[2016-08-09] MEDS: QUEtiapine TAB* 100 MG PO SCH (22:25)
[2016-08-09] MEDS: PTO: Eszopiclone (NF) 3 MG TAB PO SCH (22:25)
[2016-08-10] MEDS: Benzocaine/Menthol LOZ* 1 LOZENGE PO PRN ×7 (00:12→22:43)
[2016-08-10] MEDS: Al Hydrox/Mg Hydrox/Simet LIQ* 30 ML UDC PO PRN ×2 (08:01→17:24)
[2016-08-10] MEDS: aMILoride TAB* 5 MG PO SCH ×3 (08:02→20:56)
[2016-08-10] MEDS: Atorvastatin* 20 MG TAB PO SCH (08:02)
[2016-08-10] MEDS: amLODIPine TAB* 5 MG PO SCH (08:02)
[2016-08-10] MEDS: Vitamin THERAPEUTIC TAB PO SCH (08:03)
[2016-08-10] MEDS: Diltiazem CD CAP* 240 MG PO SCH (08:03)
[2016-08-10] MEDS: Potassium Chlor TAB* 20 MEQ TAB.ER PO SCH ×2 (08:03→20:56)
[2016-08-10] MEDS: hydrALAZINE TAB* 10 MG PO SCH ×3 (08:03→20:56)
--- NOTE | 2016-08-10 13:56 | PN ---
Subjective - Subjective Service Type: 54695 Hosp care 15 min low complexity Subjective: Guerrero reports to me that he feels that he is doing better and not needing an antipsychotic medication. He reports that he felt oversedated on Seroquel. He had no akathisia with it. He reports feeling much better today mood-hernandez, and denies any psychotic symptoms or dangerous intent or plan. Objective - Appearance Appearance: Healthy Appearing Dysmorphic Features: No Hygiene: Normal Grooming: Well Kept - Behavior Psychomotor Activities: Normal Exhibits Abnormal Movement: No - Attitude and Relatedness Attitude and Relatedness: Cooperative Eye Contact: Good - Speech Quality: Unpressured Latencies: Normal Quantity: Appropriate - Mood Patient's Decription of Mood: "Much better today" - Affect Observed Affect: Fair Affect Consistent with: Euthymia - Thought Process Patient's Thought Process: Coherent, Goal Directed Thought Content: No Passive Wish, No Suicidal Planning, No Homicidal Ideation, No Paranoid Ideation - Sensorium Experiencing Hallucinations: No, Sensorium is Clear Type of Hallucinations: Visual: No, Auditory: No, Command: No - Level of Consciousness Level of Consciousness: Alert Orientation: Yes Intact, Yes Orientated to Time, Yes Orientated to Place, Yes Orientated to Person - Impulse Control Impulse Control: Intact - Insight and Judgement Insight and Judgement: Impaired - Group Participation Particating in Group Activities: Yes - Medication Management Medication Management Adherence: Partial - refused last night's Seroquel 300 mg Assessment - Assessment Merits Inpatient Hospitalization: For Stabilization, To Initiate Treatment, For Ongoing Evaluation, For Discharge Planning, Pending Safe DC Plan Inpatient DSM-IV Dx: Unspecified Psychotic DO Clinical Impression: 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 This has culminated in the violation of a restraining order held against him by a former patient, a hopkins current stressor now with the legal ramifications. He had akathisia with Risperdal, had been ordered quetiapine, now at 300 mg, but is refusing to take it saying he does not feel he needs an antipsychotic medication. Plan - Plan Treatment Plan: Name: GUERRERO LUIS Birthdate: 1955 [id number] I have asked him to reconsider taking the Seroquel targeting psychotic symptoms , explained to him that sedation will improve in time if he continues the medication. He has no complaint of akathisia with 200 mg dose. He has been participating in groups and the milieu, no need for encouragement. Discharge planning per weekday team. Medications: Current Medications Acetaminophen (Tylenol Tab*) 650 mg PO Q4H PRN PRN Reason: PAIN or TEMP > 101 F Last Admin: 08/05/16 15:29 Dose: 650 mg Al Hydrox/Mg Hydrox/Simethicone (Maalox Plus*) 30 ml PO Q4H PRN PRN Reason: INDIGESTION Last Admin: 08/10/16 08:01 Dose: 30 ml Amiloride HCl (Midamor Tab*) 5 mg PO TID [facility] Last Admin: 08/10/16 13:46 Dose: 5 mg Amlodipine Besylate (Norvasc Tab*) 10 mg PO DAILY [facility] Last Admin: 08/10/16 08:02 Dose: 10 mg Atorvastatin Calcium (Lipitor*) 20 mg PO DAILY [facility] Last Admin: 08/10/16 08:02 Dose: 20 mg Benztropine Mesylate (Cogentin Tab*) 1 mg PO Q8H PRN PRN Reason: EXTRAPYRAMIDAL SYMPTOMS Cetirizine HCl (Zyrtec*) 10 mg PO DAILY PRN PRN Reason: UNSPECIFIED Clonidine HCl (Gqcwmocj-Mti-9 0.1 Mg Patch*) 0.1 mg TRANSDERM Q7D [facility] Last Admin: 08/06/16 12:02 Dose: 0.1 mg Diltiazem HCl (Cardizem Cd Cap*) 240 mg PO DAILY [facility] Last Admin: 08/10/16 08:03 Dose: 240 mg Diphenhydramine HCl (Benadryl Po*) 50 mg PO BEDTIME PRN PRN Reason: AGITATION/ANXIETY/INSOMNIA Last Admin: 08/08/16 23:30 Dose: 50 mg Eszopiclone (Lunesta (Nf)) 6 mg PO BEDTIME [facility] Last Admin: 08/09/16 22:25 Dose: Not Given Hydralazine HCl (Apresoline Tab*) 20 mg PO TID [facility] Last Admin: 08/10/16 13:47 Dose: 20 mg Lisinopril (Prinivil Tab*) 40 mg PO QPM [facility] Last Admin: 08/09/16 18:15 Dose: 40 mg Loperamide HCl (Imodium Cap*) 2 mg PO .SEE DIRECTIONS PRN PRN Reason: DIARRHEA Last Admin: 08/06/16 20:08 Dose: 2 mg Multivitamins (Theragran Tab*) 1 tab PO DAILY [facility] Last Admin: 08/10/16 08:03 Dose: 1 tab Ondansetron HCl (Zofran Odt Tab*) 4 mg PO Q6H PRN PRN Reason: NAUSEA Potassium Chloride (Klor Con Er Tab*) 20 meq PO BID [facility] Last Admin: 08/10/16 08:03 Dose: 20 meq Quetiapine Fumarate (Seroquel Tab*) 300 mg PO BEDTIME [facility] Last Admin: 08/09/16 22:25 Dose: Not Given Temazepam (Restoril Cap*) 15 mg PO BEDTIME PRN PRN Reason: INSOMNIA Last Admin: 08/09/16 22:22 Dose: 15 mg Throat Lozenges (Chloraseptic Morenita*) 1 morenita PO Q2H PRN PRN Reason: DRY MOUTH Last Admin: 08/10/16 11:19 Dose: 1 morenita - Discharge Plan Discharge Plan: Outpatient Follow Up
[2016-08-10] MEDS: Lisinopril TAB* 10 MG PO SCH (17:23)
[2016-08-10] MEDS: QUEtiapine TAB* 100 MG PO SCH (20:57)
[2016-08-10] MEDS: PTO: Eszopiclone (NF) 3 MG TAB PO SCH (20:59)
[2016-08-10] MEDS: diPHENhydraMINE PO* 50 MG PO PRN (22:41)
[2016-08-10] MEDS: Temazepam CAP* 15 MG PO PRN (23:34)
[2016-08-11] MEDS: Potassium Chlor TAB* 20 MEQ TAB.ER PO SCH ×2 (09:47→20:10)
[2016-08-11] MEDS: hydrALAZINE TAB* 10 MG PO SCH ×3 (09:47→20:11)
[2016-08-11] MEDS: Atorvastatin* 20 MG TAB PO SCH (09:47)
[2016-08-11] MEDS: amLODIPine TAB* 5 MG PO SCH (09:48)
[2016-08-11] MEDS: Diltiazem CD CAP* 240 MG PO SCH (09:48)
[2016-08-11] MEDS: aMILoride TAB* 5 MG PO SCH ×3 (09:50→20:10)
[2016-08-11] MEDS: Vitamin THERAPEUTIC TAB PO SCH (09:53)
[2016-08-11] MEDS: Benzocaine/Menthol LOZ* 1 LOZENGE PO PRN ×6 (10:43→21:52)
[2016-08-11] MEDS: Al Hydrox/Mg Hydrox/Simet LIQ* 30 ML UDC PO PRN (15:04)
[2016-08-11] MEDS: Lisinopril TAB* 10 MG PO SCH (17:01)
[2016-08-11] MEDS: PTO: Eszopiclone (NF) 3 MG TAB PO SCH (20:11)
[2016-08-11] MEDS: QUEtiapine TAB* 100 MG PO SCH (20:13)
[2016-08-11] MEDS: Temazepam CAP* 15 MG PO PRN (21:52)
[2016-08-12] MEDS: Benzocaine/Menthol LOZ* 1 LOZENGE PO PRN ×5 (02:19→13:30)
[2016-08-12] MEDS: Vitamin THERAPEUTIC TAB PO SCH (08:35)
[2016-08-12] MEDS: hydrALAZINE TAB* 10 MG PO SCH ×3 (08:35→20:15)
[2016-08-12] MEDS: Atorvastatin* 20 MG TAB PO SCH (08:36)
[2016-08-12] MEDS: Diltiazem CD CAP* 240 MG PO SCH (08:37)
[2016-08-12] MEDS: Potassium Chlor TAB* 20 MEQ TAB.ER PO SCH ×2 (08:37→20:15)
[2016-08-12] MEDS: aMILoride TAB* 5 MG PO SCH ×3 (08:37→20:14)
[2016-08-12] MEDS: amLODIPine TAB* 5 MG PO SCH (08:38)
[2016-08-12] MEDS: Al Hydrox/Mg Hydrox/Simet LIQ* 30 ML UDC PO PRN ×2 (08:39→13:30)
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
[2016-08-12] MEDS: Lisinopril TAB* 10 MG PO SCH (17:51)
[2016-08-12] MEDS: PTO: Eszopiclone (NF) 3 MG TAB PO SCH (20:14)
[2016-08-13] MEDS: Benzocaine/Menthol LOZ* 1 LOZENGE PO PRN ×5 (01:40→17:51)
[2016-08-13] MEDS: hydrALAZINE TAB* 10 MG PO SCH ×3 (08:35→20:56)
[2016-08-13] MEDS: Diltiazem CD CAP* 240 MG PO SCH (08:35)
[2016-08-13] MEDS: amLODIPine TAB* 5 MG PO SCH (08:35)
[2016-08-13] MEDS: Vitamin THERAPEUTIC TAB PO SCH (08:36)
[2016-08-13] MEDS: Potassium Chlor TAB* 20 MEQ TAB.ER PO SCH ×2 (08:36→20:56)
[2016-08-13] MEDS: aMILoride TAB* 5 MG PO SCH ×3 (08:36→20:55)
[2016-08-13] MEDS: Atorvastatin* 20 MG TAB PO SCH (08:37)
[2016-08-13] MEDS: Al Hydrox/Mg Hydrox/Simet LIQ* 30 ML UDC PO PRN (08:37)
[2016-08-13] MEDS: cloNIDine 0.1 MG PATCH* 0.1 MG/24 HR 7 DAY PATCH TRANSDERM SCH (11:07)
[2016-08-13] MEDS: Lisinopril TAB* 10 MG PO SCH (17:49)
[2016-08-13] MEDS: PTO: Eszopiclone (NF) 3 MG TAB PO SCH (20:55)
[2016-08-14 08:31] VITALS: BP 146/88
[2016-08-14] MEDS: Atorvastatin* 20 MG TAB PO SCH (08:56)
[2016-08-14] MEDS: amLODIPine TAB* 5 MG PO SCH (08:57)
[2016-08-14] MEDS: Diltiazem CD CAP* 240 MG PO SCH (08:57)
[2016-08-14] MEDS: aMILoride TAB* 5 MG PO SCH (08:57)
[2016-08-14] MEDS: hydrALAZINE TAB* 10 MG PO SCH (08:57)
[2016-08-14] MEDS: Potassium Chlor TAB* 20 MEQ TAB.ER PO SCH (08:58)
[2016-08-14] MEDS: Benzocaine/Menthol LOZ* 1 LOZENGE PO PRN (08:58)
[2016-08-14] MEDS: Vitamin THERAPEUTIC TAB PO SCH (08:58)
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
== END 2016-08-14 14:30 | disposition home or self-care (01) | DRG 751 ==
LOC: ED 20:34 → BSU 08-04 00:54
PROVIDERS: ADMIT Psychiatry & Neurology Psychiatry; ATTEND Psychiatry & Neurology Psychiatry
DX: F29 Unspecified psychosis not due to a substance or known physiological condition (principal); N18.3 Chronic kidney disease, stage 3 (moderate); I12.9 Hypertensive chronic kidney disease with stage 1 through stage 4 chronic kidney disease, or unspecified chronic kidney disease; G47.33 Obstructive sleep apnea (adult) (pediatric); E78.5 Hyperlipidemia, unspecified; E87.6 Hypokalemia; M54.30 Sciatica, unspecified side; N40.0 Benign prostatic hyperplasia without lower urinary tract symptoms; H93.19 Tinnitus, unspecified ear; Z79.891 Long term (current) use of opiate analgesic; Z79.899 Other long term (current) drug therapy; Z81.8 Family history of other mental and behavioral disorders; Z87.820 Personal history of traumatic brain injury; Z87.891 Personal history of nicotine dependence
CPT/HCPCS: 36415; 70551; 71020; 80053; 80307; 80320; 80329; 81003; 81015; 84443; 85025; 90853; 93005; 95816; 99222; 99231; 99232; 99233; 99238; 99283; A9270-GY; G0480